=== PATIENT | female | born 1950 | race Hispanic/Latino ===

== ENCOUNTER 2020-04-02 07:26 | Day surgery (SDC) | payer MEDICARE ==
--- NOTE | 2020-04-01 16:26 | NUR ---
INFORMED STAN KRAUSE FOR DR JOSEPH PATIENT TOOK ELIQUIS AND METFORMIN THIS MORNING...OK TO PROCEED TO PROCEDURE, PATIENT IS LAST CASE FOR TOMORROW Addendum: 04/01/20 at 1628 by JUNIOR MERAZ RN RN INFORM PATIENT TO STOP ELIQUIS AND METFORMIN NOW
--- NOTE | 2020-04-01 16:28 | NUR ---
INFORMED PATIENT AND DAUGHTER FOREST RESENDIZ TO STOP ELIQUIS AND METFORMIN NOW, THEY VERBALIZED UNDERSTANDING
[~2020-04-02] VITALS: Ht 157.5 cm; Wt 89.8 kg
[2020-04-02] VITALS (29 sets, daily range): BP systolic 89–145; BP diastolic 40–85
[~2020-04-02 07:26] MED LIST: APIX5TAB PO; CARV25TA PO; FURO40TA5 PO; LOVA40TA2 PO; METF-446 PO; TRAM50TA4 PO
[2020-04-02] MEDS ORDERED: LIDOCAINE HCL 2% VISCOUS 15 ML UDCUP PO SCH (08:00)
[2020-04-02 08:15] LABS: BASOPHILS % (AUTO) 0.6 % (0.0-5.0); EOSINOPHILS % (AUTO) 1.8 % (0.0-8.0); HEMATOCRIT 35.1 % (36-48); LYMPHOCYTES % (AUTO) 42.5 % (21.0-51.0); MEAN CORPUSCULAR HEMOGLOBIN 30.8 pg (27.0-33.0); MEAN CORPUSCULAR HGB CONC 31.9 g/dL (32.0-36.0); MEAN CORPUSCULAR VOLUME 96.4 fL (79-99); MONOCYTES % (AUTO) 8.3 % (3.0-13.0); NEUTROPHILS % (AUTO) 46.4 % (40.0-77.0); PLATELET COUNT (AUTO) 142 K/uL (130-400); RED BLOOD CELL COUNT(AUTO) 3.64 MIL/uL (4.00-5.50); RED CELL DISTRIBUTION WIDTH 13.1 % (11.0-15.5); WHITE BLOOD COUNT (AUTO) 5.1 K/uL (4.8-10.8)
[2020-04-02 08:25] LABS: APPEARANCE,URINE Cloudy (CLEAR); BILIRUBIN,URINE Negative (NEGATIVE); COLOR,URINE Yellow (YELLOW); GLUCOSE, URINE (UA) Negative (NEGATIVE); KETONES,URINE Negative (NEGATIVE); LEUKOCYTE ESTERASE ,URINE Trace (NEGATIVE); NITRATE,URINE Negative (NEGATIVE); OCCULT BLOOD,URINE Nonhemolyzed Trace (NEGATIVE); POTASSIUM 3.8 mmol/L (3.5-5.1); PROTEIN,URINE POS 1+ mg/dL (NEGATIVE)
[2020-04-02 08:29] LABS: INR 0.99 (0.85-1.15); PARTIAL THROMBOPLASTIN TIME 26.7 SEC (26.3-35.5); PROTHROMBIN TIME 10.7 SEC (9.6-11.6)
[2020-04-02 08:48] LABS: BACTERIA,URINE Moderate /HPF (None Seen); RBC,URINE 0-1 /HPF (0-1); WBC,URINE 0-1 /HPF (0-1)
[2020-04-02] MEDS ORDERED: MIDAZOLAM HCL 1 MG/ML 2ML VIAL ONE ×3 (09:37→12:40)
[2020-04-02] MEDS ORDERED: FENTANYL CITRATE PF 50 MCG/1 ML 2ML VIAL ONE (09:39)
[2020-04-02] MEDS ORDERED: HEPARIN SODIUM 1000UNIT/ML 10ML VIAL ONE (11:36)
[2020-04-02] MEDS ORDERED: SODIUM BICARB 50MEQ 50ML VIAL ONE (11:36)
[2020-04-02] MEDS ORDERED: NITROGLYCERIN 2 MG/VIAL VIAL IV ONE (11:36)
[2020-04-02] MEDS ORDERED: IOHEXOL-350 50ML VIAL IV ONE (11:36)
[2020-04-02] MEDS ORDERED: IOHEXOL 350 MG/ML 100ML INFUS..BTL IV ONE (11:36)
[2020-04-02] MEDS ORDERED: MEPERIDINE-PF 25 MG/ML SYG ONE (11:36)
[2020-04-02] MEDS ORDERED: LIDOCAINE HCL 2% 20ML ONE (11:38)
[2020-04-02] MEDS ORDERED: NALOXONE HCL 0.4 MG/1 ML ML ONE (12:33)
[2020-04-02] MEDS ORDERED: SODIUM CHLORIDE 0.9% 1000ML 1,000 ML IV SCH (12:54)
[2020-04-02] MEDS ORDERED: GLUCAGON 1MG KIT 1 MG ML IM PRN (13:00)
[2020-04-02] MEDS ORDERED: DEXTROSE 50%-WATER 50 ML DISP.SYRIN IV PRN (13:00)
[2020-04-02] MEDS ORDERED: LABETALOL HCL 5 MG/ML 20ML VIAL IV ONE (13:17)
--- NOTE | 2020-04-02 13:40 | NUR ---
LATE ENTRY PT ARRIVED AT 1330, ACCEPTED PT FROM PEDIATRICS PHYSICIAN NURSE, AND AT 1340 JESSICA MCCURDY RESUMED CARE FOR PATIENT.
[2020-04-02] MEDS ORDERED: MIDAZOLAM HCL 1 MG/ML 2ML VIAL IVP PRN (14:15)
--- NOTE | 2020-04-02 16:00 | NUR ---
RECEIVED REPORT FROM JESSICA MCCURDY RN AT BEDSIDE USING SBAR. PATIENT AAOX3, RESPIRATIONS UNLABORED, VITAL SIGNS STABLE, DENIES ANY PAIN AT THIS TIME. DRESSING TO RIGHT GROIN IS DRY/INTACT, NO HEMATOMA, SOFT TO TOUCH.
[2020-04-02] MEDS ORDERED: INSULIN HUMULIN R 100 UNIT/ML 3ML SQ SCH (16:30)
--- NOTE | 2020-04-02 17:10 | NUR ---
PATIENT DISCHARGED FROM FACILITY VIA WHEELCHAIR BY NURSE. PATIENT ASSISTED INTO PRIVATE VEHICLE DRIVEN BY DAUGHTER.
== END 2020-04-02 17:10 | disposition home or self-care (01) ==
LOC: DAH 07:26
PROVIDERS: ATTEND Internal Medicine Cardiovascular Disease
DX: I34.0 Nonrheumatic mitral (valve) insufficiency (principal); I10 Essential (primary) hypertension; E11.9 Type 2 diabetes mellitus without complications; I48.20 Chronic atrial fibrillation, unspecified
CPT/HCPCS: 36415; 71045; 80048; 81001; 82948; 85025; 85610; 85730; 87088; 93005; 93313; 93460; A4215; A4216; A4221; A4222; A4223 ×3; A4606; A4663; C1760; C1894 ×2; J2175; J2250 ×3; J2310; J3010; J3490 ×4; Q9965; Q9967 ×2; 99156; 99157; J1644

== ENCOUNTER 2020-04-10 12:00 | Inpatient (IN) | payer MEDICARE ==
[~2020-04-10] VITALS: Ht 157.5 cm; Wt 92.0 kg
[2020-04-10 12:44] LABS: BASOPHILS % (AUTO) 0.4 % (0.0-5.0); EOSINOPHILS % (AUTO) 1.4 % (0.0-8.0); HEMATOCRIT 36.3 % (36-48); LYMPHOCYTES % (AUTO) 26.7 % (21.0-51.0); MEAN CORPUSCULAR HEMOGLOBIN 30.7 pg (27.0-33.0); MONOCYTES % (AUTO) 8.2 % (3.0-13.0); NEUTROPHILS % (AUTO) 62.9 % (40.0-77.0); PLATELET COUNT (AUTO) 172 K/uL (130-400); RED BLOOD CELL COUNT(AUTO) 3.78 MIL/uL (4.00-5.50); RED CELL DISTRIBUTION WIDTH 13.1 % (11.0-15.5); WHITE BLOOD COUNT (AUTO) 5.7 K/uL (4.8-10.8)
[2020-04-10 12:58] LABS: HEMOGLOBIN A1C 6.7 % (4.0-6.0)
[2020-04-10 13:27] LABS: INR 0.96 (0.85-1.15); PROTHROMBIN TIME 10.4 SEC (9.6-11.6)
[2020-04-10 13:32] LABS: ALBUMIN 3.6 g/dL (3.5-5.0); BILIRUBIN,TOTAL 0.6 mg/dL (0.2-1.0); CREATININE 0.9 mg/dL (0.5-1.5); POTASSIUM 4.3 mmol/L (3.5-5.1); TOTAL PROTEIN, SERUM 7.2 g/dL (6.0-8.3)
[2020-04-14 12:02] VITALS: BP 119/55
[2020-04-15] MEDS ORDERED: CEFUROXIME SODIUM 1.5 GM VIAL IVP SCH (08:00)
[2020-04-20] VITALS (21 sets, daily range): BP systolic 113–180; BP diastolic 45–86
[2020-04-20] MEDS: CEFUROXIME SODIUM 1.5 GM VIAL IVP SCH ×2 (06:00→09:20)
[2020-04-20] MEDS ORDERED: EPINEPHRINE 10 MG in SODIUM CHLORIDE 0.9% 240 ML IV PRN (06:15)
[2020-04-20] MEDS ORDERED: AMINOCAPROIC ACID 15,000 MG in SODIUM CHLORIDE 0.9% 500ML 420 ML IV PRN (06:15)
[2020-04-20] MEDS ORDERED: NOREPINEPHRINE BITARTRATE 8 MG in DEXTROSE 5%-WATER 250 ML IV PRN (06:15)
[2020-04-20] MEDS ORDERED: SODIUM CHLORIDE 0.9% 1000ML 1,000 ML IV ONE ×2 (07:44→11:11)
[2020-04-20] MEDS ORDERED: DELNIDO FORMULA 1 BAG IV ONE (07:46)
[2020-04-20] MEDS ORDERED: NOREPINEPHRINE BITARTRATE 1 MG/1 ML ML IV ONE (09:03)
[2020-04-20] MEDS ORDERED: EPINEPHRINE 1 MG/ML AMPULE ONE (09:03)
[2020-04-20] MEDS ORDERED: PROTAMINE SULFATE 10 MG/ML 25ML VIAL IV ONE (09:03)
[2020-04-20] MEDS ORDERED: AMINOCAPROIC ACID 250 MG/ML 20 ML VIAL IV ONE ×2 (09:03→15:25)
[2020-04-20] MEDS ORDERED: SODIUM BICARB 50MEQ 50ML VIAL ONE (09:03)
[2020-04-20] MEDS ORDERED: HEPARIN SODIUM 1000UNIT/ML 10ML VIAL ONE (09:03)
[2020-04-20] MEDS ORDERED: FENTANYL CITRATE PF 50 MCG/1 ML 20ML VIAL IJ ONE (09:03)
[2020-04-20] MEDS ORDERED: ESMOLOL HCL 10 MG/ML 10 ML VIAL ONE ×2 (09:03→09:04)
[2020-04-20] MEDS ORDERED: MIDAZOLAM HCL 1 MG/ML 2ML VIAL ONE (09:03)
[2020-04-20] MEDS ORDERED: LIDOCAINE PF 2% 5ML ABBOJECT ONE ×2 (09:03→09:04)
[2020-04-20] MEDS ORDERED: PROPOFOL 10 MG/ML 20ML VIAL IV ONE (09:03)
[2020-04-20] MEDS ORDERED: ROCURONIUM 10MG/1ML SYR 10 MG/ML ML ONE ×2 (09:04→11:16)
--- NOTE | 2020-04-20 09:31 | NUR ---
BELONGINGS WITH DAUGHTER
[2020-04-20] MEDS ORDERED: OCTYL 2-CYANOACRYLATE 1 EACH TP ONE (10:12)
[2020-04-20] MEDS ORDERED: CEFAZOLIN SODIUM 1 GM VIAL ONE (10:12)
[2020-04-20 10:15] LABS: ABG BASE EXCESS 1.5 mmol/L (-2.0-3.0); ABG HCO3 23.4 mmol/L (21.0-28.0); ABG OXYGEN SATURATION 98.8 % (95.0-99.0); ABG PCO2 29 mmHg (32-45)
[2020-04-20] MEDS ORDERED: ETOMIDATE 2 MG/ML 10 ML VIAL ONE (10:35)
[2020-04-20 10:42] LABS: ABG BASE EXCESS -1.6 mmol/L (-2.0-3.0); ABG OXYGEN SATURATION 98.6 % (95.0-99.0); ABG PCO2 32 mmHg (32-45)
[2020-04-20 11:08] LABS: ABG BASE EXCESS 5.7 mmol/L (-2.0-3.0); ABG HCO3 28.6 mmol/L (21.0-28.0); ABG OXYGEN SATURATION 98.6 % (95.0-99.0); ABG PCO2 35 mmHg (32-45)
[2020-04-20] MEDS ORDERED: ROPIVACAINE 0.5% 5MG/ML 30ML IJ ONE (11:22)
[2020-04-20] MEDS ORDERED: GLYCOPYRROLATE 1 MG/5 ML SYRINGE ONE (11:23)
[2020-04-20] MEDS ORDERED: Q-PUMP 1 EACH IRRIG SCH (11:30)
[2020-04-20] MEDS ORDERED: SODIUM CHLORIDE 0.9% 500ML 500 ML IV SCH (11:36)
[2020-04-20] MEDS ORDERED: NOREPINEPHRINE 4MG/NS 250ML 250 ML IV PRN (11:45)
[2020-04-20] MEDS ORDERED: ALBUMIN (HUMAN) 5% 250 ML IV PRN (11:45)
[2020-04-20] MEDS ORDERED: ACETAMINOPHEN 325 MG TAB PO PRN (11:45)
[2020-04-20] MEDS ORDERED: EPINEPHRINE 10 MG in DEXTROSE 5%-WATER 250 ML IV PRN (11:45)
[2020-04-20] MEDS ORDERED: MORPHINE SULFATE 2 MG/ML 1ML SYG IV PRN (11:45)
[2020-04-20] MEDS ORDERED: ONDANSETRON HCL 4 MG/2 ML VIAL IV PRN (11:45)
[2020-04-20] MEDS ORDERED: MORPHINE SULFATE 4 MG/1ML SYG IV PRN (11:45)
[2020-04-20] MEDS ORDERED: GLUCAGON 1MG KIT 1 MG ML IM PRN (11:45)
[2020-04-20] MEDS ORDERED: INSULIN REGULAR, HUMAN 3ML 100 UNIT in SODIUM CHLORIDE 0.9% 99 ML IV SCH ×2 (11:45)
[2020-04-20] MEDS ORDERED: SODIUM CHLORIDE 0.9% 1000ML 1,000 ML IV SCH (11:45)
[2020-04-20] MEDS ORDERED: SODIUM CHLORIDE 0.9% 250 ML IV PRN (11:45)
[2020-04-20] MEDS ORDERED: SODIUM CHLORIDE 0.9% 10 ML VIAL IVP PRN (11:45)
[2020-04-20] MEDS ORDERED: SODIUM BICARB 50MEQ 50ML VIAL IV PRN (11:45)
[2020-04-20] MEDS ORDERED: DEXTROSE 50%-WATER 50 ML DISP.SYRIN IV PRN (11:45)
[2020-04-20] MEDS ORDERED: ACETAMINOPHEN 650 MG SUPPOSITORY RC PRN (11:45)
[2020-04-20] MEDS ORDERED: POTASSIUM PHOS 15 mMOL+NS250ML 250 ML IV PRN (11:45)
[2020-04-20] MEDS ORDERED: CALCIUM GLUCONATE 1 GM in SODIUM CHLORIDE 0.9% 50 ML IV PRN (11:45)
[2020-04-20] MEDS ORDERED: AMINOCAPROIC ACID 15,000 MG in SODIUM CHLORIDE 0.9% 250 ML IV SCH (11:45)
[2020-04-20] MEDS ORDERED: PROPOFOL 1000 MG/100 ML 100 ML IV PRN (11:45)
[2020-04-20] MEDS ORDERED: MAGNESIUM 2GM PREMIX 50ML 50 ML IV PRN (11:45)
[2020-04-20] MEDS ORDERED: NITROGLYCERIN 50 MG/D5% WATER 250 BOT IV SCH (11:45)
[2020-04-20 11:55] LABS: ABG BASE EXCESS 1.9 mmol/L (-2.0-3.0); ABG HCO3 26.1 mmol/L (21.0-28.0); ABG OXYGEN SATURATION 98.5 % (95.0-99.0); ABG PCO2 39 mmHg (32-45)
--- NOTE | 2020-04-20 12:25 | NUR ---
RECEIVED PT FROM OR POST MVR, PT ACCOMPANIED BY DR. GOODWIN AND OR NURSES. ASSESSMENT COMPLETED NOTED. PT ORALLY INTUBATED AND PLACED AT PRESCRIBED VENT SETTINGS. ALL LINES LEVELED AND CALIBRATED WITH ADEQUATE WAVEFORM. PT ON LEVOPHED AT 2 MCGS/MIN AND EPI AT 0.07 MCGS/KG/MIN AND AMICAR AT 75 ML/HR VIA RT IJ CORDIS. TITRATING NEEDED. V PACING WIRES X 2 TO PACEMAKER GENERATOR BOX SET AT VVI 60, SEN 1, STIM 18. PACING CORRECTLY. PT SR 64 WITH OCCASIONAL PACING, UNDERLYING SINUS BRADYCARDIA . AUDIBLE STRONG APICAL PULSE. VS/HEMODYNAMICS NOTED IN EMR. PT CO 4.5-5 AND CI 2.4. NO S/S OF PAIN AT THIS MOMENT, PT UNABLE TO OPEN EYES OR FOLLOW COMMANDS AT THIS TIME. CONTINUE TO MONITOR PT.
[2020-04-20 12:48] LABS: ABG BASE EXCESS -0.2 mmol/L (-2.0-3.0); ABG HCO3 23.8 mmol/L (21.0-28.0); ABG OXYGEN SATURATION 98.3 % (95.0-99.0); ABG PCO2 36 mmHg (32-45)
[2020-04-20 12:58] LABS: HEMATOCRIT 27.2 % (36-48); MEAN CORPUSCULAR HEMOGLOBIN 31.6 pg (27.0-33.0); MEAN CORPUSCULAR HGB CONC 33.5 g/dL (32.0-36.0); MEAN CORPUSCULAR VOLUME 94.4 fL (79-99); RED BLOOD CELL COUNT(AUTO) 2.88 MIL/uL (4.00-5.50); RED CELL DISTRIBUTION WIDTH 12.8 % (11.0-15.5)
[2020-04-20 13:13] LABS: INR 1.15 (0.85-1.15); PARTIAL THROMBOPLASTIN TIME 23.9 SEC (26.3-35.5); PROTHROMBIN TIME 12.4 SEC (9.6-11.6)
[2020-04-20 13:20] LABS: CREATININE 0.7 mg/dL (0.5-1.5); MAGNESIUM 2.5 mg/dL (1.80-2.40); PHOSPHORUS 3.2 mg/dL (2.5-4.9); POTASSIUM 4.6 mmol/L (3.5-5.1)
--- NOTE | 2020-04-20 13:45 | NUR ---
[facility] CALLED AND NOTIFED OF PT ARRIVAL TO UNIT.
[2020-04-20 13:46] LABS: ABG HCO3 23.1 mmol/L (21.0-28.0); ABG OXYGEN SATURATION 98.4 % (95.0-99.0); ABG PCO2 33 mmHg (32-45)
--- NOTE | 2020-04-20 14:22 | NUR ---
DAUGHTER FOREST RESENDIZ AT BEDSIDE. UPDATED IN PT CONDITION. ALL QUESTIONS ANSWERED.
[2020-04-20] MEDS ORDERED: HEPARIN SODIUM 1000UNIT/ML 10ML VIAL IV ONE (15:25)
[2020-04-20] MEDS ORDERED: CALCIUM GLUCONATE 1 GM/10 ML VIAL IV ONE (15:25)
[2020-04-20] MEDS ORDERED: MAGNESIUM SULFATE 1 GM/2 ML VIAL IM ONE (15:25)
[2020-04-20] MEDS ORDERED: PHENYLEPHRINE HCL 10 MG/ML 1ML VIAL IV ONE (15:25)
[2020-04-20] MEDS ORDERED: SODIUM BICARB 8.4% 50ML SYRINGE IVP ONE (15:25)
[2020-04-20] MEDS ORDERED: ALBUMIN (HUMAN) 25% 50 ML IV ONE (15:25)
[2020-04-20] MEDS ORDERED: MANNITOL 25% 50ML VIAL IV ONE (15:25)
[2020-04-20 15:40] LABS: ABG BASE EXCESS 0.1 mmol/L (-2.0-3.0); ABG HCO3 23.4 mmol/L (21.0-28.0); ABG OXYGEN SATURATION 98.5 % (95.0-99.0); ABG PCO2 33 mmHg (32-45)
[2020-04-20] MEDS: POTASSIUM CHLORIDE 20MEQ/100ML 100 ML IV PRN ×2 (15:43→18:35)
[2020-04-20] MEDS: CEFAZOLIN SODIUM 1 GM VIAL IV SCH (16:03)
--- NOTE | 2020-04-20 16:26 | NUR ---
YON PLAN PATIENT S/P AVR IN CVR VENTED. JUAN MANUEL WILL CONTINUE TO FOLLOW. Addendum: 04/20/20 at 1627 by LOIS OTTO RN CM Amended: Links added.
[2020-04-20 17:30] LABS: ABG BASE EXCESS 0.1 mmol/L (-2.0-3.0); ABG HCO3 26.7 mmol/L (21.0-28.0); ABG OXYGEN SATURATION 96.5 % (95.0-99.0); ABG PCO2 52 mmHg (32-45)
--- NOTE | 2020-04-20 17:33 | NUR ---
WEANING FROM VENT UNSUCCESSFUL. PT UNABLE TO STAY AWAKE AND TAKE DEEP BREATHS. PLACED BACK ON SIMV 12, WILL REATTEMPT WHEN PT FULLY AWAKE.
[2020-04-20 18:31] LABS: ABG BASE EXCESS 3.1 mmol/L (-2.0-3.0); ABG HCO3 26.4 mmol/L (21.0-28.0); ABG OXYGEN SATURATION 98.3 % (95.0-99.0); ABG PCO2 36 mmHg (32-45)
[2020-04-20 20:14] LABS: ABG BASE EXCESS -0.6 mmol/L (-2.0-3.0); ABG OXYGEN SATURATION 98.1 % (95.0-99.0); ABG PCO2 45 mmHg (32-45)
[2020-04-20] MEDS ORDERED: KETOROLAC TROMETHAMINE 15MG/ML IM PRN (20:15)
[2020-04-20] MEDS ORDERED: KETOROLAC TROMETHAMINE 15MG/ML ONE (20:16)
[2020-04-20] MEDS: FAMOTIDINE/PF 20 MG/2 ML VIAL IV SCH (20:21)
[2020-04-20] MEDS: SIMVASTATIN 20 MG TABLET PO SCH (20:22)
[2020-04-20 22:28] LABS: ABG BASE EXCESS -2.5 mmol/L (-2.0-3.0); ABG HCO3 24.3 mmol/L (21.0-28.0); ABG PCO2 51 mmHg (32-45)
[2020-04-20 23:32] LABS: ABG BASE EXCESS 1.3 mmol/L (-2.0-3.0); ABG HCO3 27.3 mmol/L (21.0-28.0); ABG OXYGEN SATURATION 97.6 % (95.0-99.0); ABG PCO2 50 mmHg (32-45)
[2020-04-21] VITALS (38 sets, daily range): BP systolic 94–189; BP diastolic 44–75
[2020-04-21 00:50] LABS: ABG BASE EXCESS 1.9 mmol/L (-2.0-3.0); ABG OXYGEN SATURATION 97.7 % (95.0-99.0); ABG PCO2 51 mmHg (32-45)
[2020-04-21] MEDS: CEFAZOLIN SODIUM 1 GM VIAL IV SCH ×2 (01:13→08:32)
[2020-04-21 05:09] LABS: HEMATOCRIT 29.4 % (36-48); MEAN CORPUSCULAR HEMOGLOBIN 30.7 pg (27.0-33.0); MEAN CORPUSCULAR HGB CONC 32.3 g/dL (32.0-36.0); MEAN CORPUSCULAR VOLUME 95.1 fL (79-99); RED BLOOD CELL COUNT(AUTO) 3.09 MIL/uL (4.00-5.50); RED CELL DISTRIBUTION WIDTH 13.5 % (11.0-15.5); WHITE BLOOD COUNT (AUTO) 10.5 K/uL (4.8-10.8)
[2020-04-21 05:28] LABS: ABG BASE EXCESS 4.2 mmol/L (-2.0-3.0); ABG HCO3 30.9 mmol/L (21.0-28.0); ABG OXYGEN SATURATION 98.1 % (95.0-99.0); ABG PCO2 54 mmHg (32-45)
[2020-04-21 05:34] LABS: INR 1.03 (0.85-1.15); PROTHROMBIN TIME 11.1 SEC (9.6-11.6)
[2020-04-21 05:40] LABS: CREATININE 1.1 mg/dL (0.5-1.5); MAGNESIUM 1.9 mg/dL (1.80-2.40); PHOSPHORUS 4.2 mg/dL (2.5-4.9); POTASSIUM 3.9 mmol/L (3.5-5.1)
[2020-04-21] MEDS: CEFUROXIME SODIUM 1.5 GM VIAL IVP SCH (06:00)
[2020-04-21] MEDS: KETOROLAC TROMETHAMINE 15MG/ML IV PRN ×2 (06:48→22:14)
[2020-04-21] MEDS: FUROSEMIDE 10 MG/ML 2ML VIAL IV SCH ×2 (08:31→20:23)
[2020-04-21] MEDS: ASPIRIN 81MG TAB.CHEW PO SCH (08:31)
[2020-04-21] MEDS: FAMOTIDINE/PF 20 MG/2 ML VIAL IV SCH ×2 (08:31→20:22)
[2020-04-21] MEDS: TRAMADOL HCL 50 MG TABLET PO PRN ×2 (08:32→15:31)
[2020-04-21] MEDS: POTASSIUM CHLORIDE 20MEQ/100ML 100 ML IV PRN (10:25)
--- NOTE | 2020-04-21 15:04 | NUR ---
DC PLAN VISITED WITH PATIENT. PATIENT IN THE MIDDLE OF PT SESSION DID NOT WANT TO INTERRUPT. Addendum: 04/21/20 at 1505 by LOIS OTTO RN CM Amended: Links added.
[2020-04-21] MEDS: CARVEDILOL 3.125 MG TABLET PO SCH ×2 (15:31→20:22)
[2020-04-21] MEDS: SIMVASTATIN 20 MG TABLET PO SCH (20:22)
[2020-04-21] MEDS: ACETAMINOPHEN 325 MG TAB PO PRN (22:14)
[2020-04-22] VITALS (15 sets, daily range): BP systolic 102–141; BP diastolic 42–80
[2020-04-22 00:50] LABS: MAGNESIUM 2.1 mg/dL (1.80-2.40); POTASSIUM 3.8 mmol/L (3.5-5.1)
[2020-04-22] MEDS: POTASSIUM CHLORIDE 20MEQ/100ML 100 ML IV PRN (01:03)
[2020-04-22] MEDS ORDERED: CALCIUM GLUCONATE 1 GM/10 ML VIAL IV ONE (03:19)
[2020-04-22] MEDS: TRAMADOL HCL 50 MG TABLET PO PRN ×6 (05:05→18:25)
[2020-04-22 06:51] LABS: HEMATOCRIT 28.2 % (36-48); MEAN CORPUSCULAR HEMOGLOBIN 31.3 pg (27.0-33.0); MEAN CORPUSCULAR HGB CONC 31.9 g/dL (32.0-36.0); MEAN CORPUSCULAR VOLUME 97.9 fL (79-99); RED BLOOD CELL COUNT(AUTO) 2.88 MIL/uL (4.00-5.50); RED CELL DISTRIBUTION WIDTH 13.7 % (11.0-15.5); WHITE BLOOD COUNT (AUTO) 11.2 K/uL (4.8-10.8)
[2020-04-22 07:03] LABS: CREATININE 0.9 mg/dL (0.5-1.5); POTASSIUM 4.2 mmol/L (3.5-5.1)
[2020-04-22] MEDS: FUROSEMIDE 10 MG/ML 2ML VIAL IV SCH (09:00)
[2020-04-22] MEDS ORDERED: CARVEDILOL 3.125 MG TABLET PO SCH (09:00)
[2020-04-22] MEDS: ASPIRIN 81MG TAB.CHEW PO SCH (09:07)
[2020-04-22] MEDS: FAMOTIDINE/PF 20 MG/2 ML VIAL IV SCH (09:07)
[2020-04-22] MEDS: CARVEDILOL 3.125 MG TABLET PO SCH (09:08)
[2020-04-22] MEDS: FUROSEMIDE 20 MG TABLET PO SCH ×2 (09:08→18:22)
[2020-04-22] MEDS ORDERED: METOPROLOL TARTRATE 25 MG TAB PO SCH (09:45)
[2020-04-22] MEDS: SIMVASTATIN 20 MG TABLET PO SCH (20:20)
[2020-04-22] MEDS: METOPROLOL TARTRATE 25 MG TAB PO SCH (20:20)
[2020-04-22] MEDS: FAMOTIDINE 20MG TAB 20 MG TAB PO SCH (20:20)
[2020-04-23] MEDS: TRAMADOL HCL 50 MG TABLET PO PRN ×3 (01:24→17:40)
[2020-04-23 04:38] VITALS: BP 115/48
[2020-04-23 05:27] LABS: HEMATOCRIT 28.6 % (36-48); MEAN CORPUSCULAR HEMOGLOBIN 30.9 pg (27.0-33.0); MEAN CORPUSCULAR HGB CONC 30.8 g/dL (32.0-36.0); MEAN CORPUSCULAR VOLUME 100.4 fL (79-99); PLATELET COUNT (AUTO) 102 K/uL (130-400); RED BLOOD CELL COUNT(AUTO) 2.85 MIL/uL (4.00-5.50); RED CELL DISTRIBUTION WIDTH 13.3 % (11.0-15.5); WHITE BLOOD COUNT (AUTO) 9.5 K/uL (4.8-10.8)
[2020-04-23 06:18] LABS: CREATININE 0.7 mg/dL (0.5-1.5); POTASSIUM 4.5 mmol/L (3.5-5.1)
[2020-04-23] MEDS: METFORMIN HCL 500 MG TABLET PO SCH ×3 (07:30→17:31)
[2020-04-23 08:43] VITALS: BP 135/78
[2020-04-23] MEDS: FUROSEMIDE 20 MG TABLET PO SCH ×2 (09:44→17:31)
[2020-04-23] MEDS: METOPROLOL TARTRATE 25 MG TAB PO SCH ×2 (09:44→20:47)
[2020-04-23] MEDS: ASPIRIN 81MG TAB.CHEW PO SCH (09:44)
[2020-04-23] MEDS: FAMOTIDINE 20MG TAB 20 MG TAB PO SCH ×2 (09:44→20:47)
--- NOTE | 2020-04-23 10:15 | NUR ---
DC PLAN VISITED WITH PATIENT. PATIENT LIVES WITH DAUGHTER. INDEPENDENT ABLE TO PERFORM ADL'S. PATIENT HAS NO SERVICES. WALKER AVAILABLE DOES NOT USE. FEELS SAFE TO RETURN HOME. Addendum: 04/23/20 at 1019 by LOIS OTTO RN CM Amended: Links added.
[2020-04-23 10:59] VITALS: BP 128/62
[2020-04-23 16:30] VITALS: BP 128/80
[2020-04-23] MEDS: ENOXAPARIN SODIUM 30 MG/0.3 ML SQ SCH (17:40)
[2020-04-23 19:00] VITALS: BP 129/82
[2020-04-23] MEDS: SIMVASTATIN 20 MG TABLET PO SCH (20:47)
[2020-04-23 23:00] VITALS: BP 136/63
[2020-04-24] MEDS: TRAMADOL HCL 50 MG TABLET PO PRN ×2 (01:53→08:09)
[2020-04-24 03:00] VITALS: BP 124/65
[2020-04-24 04:46] LABS: HEMATOCRIT 26.6 % (36-48); MEAN CORPUSCULAR HEMOGLOBIN 30.7 pg (27.0-33.0); RED BLOOD CELL COUNT(AUTO) 2.77 MIL/uL (4.00-5.50); RED CELL DISTRIBUTION WIDTH 12.9 % (11.0-15.5); WHITE BLOOD COUNT (AUTO) 7.1 K/uL (4.8-10.8)
[2020-04-24 05:22] LABS: CREATININE 0.8 mg/dL (0.5-1.5); POTASSIUM 3.7 mmol/L (3.5-5.1)
[2020-04-24] MEDS: FAMOTIDINE 20MG TAB 20 MG TAB PO SCH ×2 (08:00→20:33)
[2020-04-24] MEDS: ASPIRIN 81MG TAB.CHEW PO SCH (08:01)
[2020-04-24] MEDS: FUROSEMIDE 20 MG TABLET PO SCH ×2 (08:01→16:56)
[2020-04-24] MEDS: METFORMIN HCL 500 MG TABLET PO SCH ×2 (08:01→16:56)
[2020-04-24] MEDS: METOPROLOL TARTRATE 25 MG TAB PO SCH ×2 (08:01→20:33)
[2020-04-24] MEDS: ENOXAPARIN SODIUM 30 MG/0.3 ML SQ SCH (08:02)
[2020-04-24 08:36] VITALS: BP 113/64
[2020-04-24 11:20] VITALS: BP 121/64
[2020-04-24 11:57] VITALS: BP 121/64
[2020-04-24] MEDS ORDERED: TRAMADOL HCL 50 MG TABLET PO PRN ×2 (14:00)
--- NOTE | 2020-04-24 14:19 | NUR ---
CALLED AND SPOKE WITH DAUGHTER, FOREST ([phone]) AND INFORMED HER THAT DR. SILVA HAD ROUNDED AND THAT PATIENT WILL BE FOR DC TOMORROW.
[2020-04-24] MEDS: GABAPENTIN 100 MG CAPSULE PO SCH ×2 (14:35→20:33)
[2020-04-24 16:00] VITALS: BP 129/77
[2020-04-24 20:00] VITALS: BP 137/66
[2020-04-24] MEDS: SIMVASTATIN 20 MG TABLET PO SCH (20:33)
[2020-04-25] VITALS: BP 117/73
[2020-04-25 04:00] VITALS: BP 137/55
[2020-04-25 07:00] VITALS: BP 120/58
[2020-04-25] MEDS: FUROSEMIDE 20 MG TABLET PO SCH (08:13)
[2020-04-25] MEDS: METOPROLOL TARTRATE 25 MG TAB PO SCH (08:13)
[2020-04-25] MEDS: METFORMIN HCL 500 MG TABLET PO SCH (08:13)
[2020-04-25] MEDS: FAMOTIDINE 20MG TAB 20 MG TAB PO SCH (08:14)
[2020-04-25] MEDS: ASPIRIN 81MG TAB.CHEW PO SCH (08:14)
[2020-04-25] MEDS: GABAPENTIN 100 MG CAPSULE PO SCH (08:17)
[2020-04-25] MEDS: ACETAMINOPHEN 325 MG TAB PO PRN (08:17)
[2020-04-25] MEDS: ENOXAPARIN SODIUM 30 MG/0.3 ML SQ SCH (08:18)
[2020-04-25] MEDS ORDERED: CARV12.580 PO (10:15)
[2020-04-25] MEDS ORDERED: GABA100C PO (10:15)
[2020-04-25 11:00] VITALS: BP 128/60
[2020-04-25] MEDS ORDERED: CARVEDILOL 12.5 MG TABLET PO SCH (21:00)
[2020-04-25] MEDS ORDERED: GABAPENTIN 100 MG CAPSULE PO SCH (21:00)
== END 2020-04-25 13:20 | disposition home or self-care (01) | DRG 220 ==
LOC: EDSTATUS 12:00 → DAHIP 04-20 06:53 → 2CV 04-20 10:57 → 4AH 04-22 14:45
PROVIDERS: ADMIT Thoracic Surgery (Cardiothoracic Vascular Surgery); ATTEND Thoracic Surgery (Cardiothoracic Vascular Surgery)
PROC: 5A1221Z Performance of Cardiac Output, Continuous (ICD-10-PCS; 2020-04-20)
PROC: B24BZZ4 Ultrasonography of Heart with Aorta, Transesophageal (ICD-10-PCS; 2020-04-20)
PROC: 3E083GC Introduction of Other Therapeutic Substance into Heart, Percutaneous Approach (ICD-10-PCS; 2020-04-20)
PROC: 02QG0ZZ Repair Mitral Valve, Open Approach (ICD-10-PCS; principal; 2020-04-20 09:08)
PROC: 02L70ZK Occlusion of Left Atrial Appendage, Open Approach (ICD-10-PCS; 2020-04-20 09:08)
DX: I34.0 Nonrheumatic mitral (valve) insufficiency (principal); I48.20 Chronic atrial fibrillation, unspecified; E11.9 Type 2 diabetes mellitus without complications; E66.9 Obesity, unspecified; E78.00 Pure hypercholesterolemia, unspecified; E78.5 Hyperlipidemia, unspecified; E87.70 Fluid overload, unspecified; G89.12 Acute post-thoracotomy pain; I10 Essential (primary) hypertension; I27.21 Secondary pulmonary arterial hypertension; Z68.37 Body mass index [BMI] 37.0-37.9, adult; Z79.82 Long term (current) use of aspirin; Z79.899 Other long term (current) drug therapy
CPT/HCPCS: 36415; 71045; 71046; 80048; 80053; 82330; 82435; 82803; 82947; 82948; 83036; 83605; 83735; 84100; 84132; 84295; 85018; 85025; 85027; 85347; 85610; 85730; 86850; 86900; 86901; 86922; 93005; 93313; 93318; 93880; 94002; 94010; 94150; 97039; A4357; A7048; G0378; J0171; J0610; J0690; J0697; J1644; J1650; J1815; J1885; J1940; J2001; J2150; J2250; J2370; J2405; J2704; J2720; J2795; J3010; J3475; J3480; J3490; J7030; J7040; P9047

== ENCOUNTER 2020-05-20 18:17 | Emergency (ER) | payer MEDICARE ==
[~2020-05-20 18:17] MED LIST changes: +CARV12.580 PO; -CARV25TA PO; +GABA100C PO
[2020-05-20 19:23] LABS: BASOPHILS % (AUTO) 0.2 % (0.0-5.0); EOSINOPHILS % (AUTO) 0.2 % (0.0-8.0); HEMATOCRIT 36.2 % (36-48); LYMPHOCYTES % (AUTO) 27.9 % (21.0-51.0); MEAN CORPUSCULAR HEMOGLOBIN 30.4 pg (27.0-33.0); MEAN CORPUSCULAR HGB CONC 32.3 g/dL (32.0-36.0); MONOCYTES % (AUTO) 6.4 % (3.0-13.0); NEUTROPHILS % (AUTO) 64.9 % (40.0-77.0); PLATELET COUNT (AUTO) 151 K/uL (130-400); RED BLOOD CELL COUNT(AUTO) 3.85 MIL/uL (4.00-5.50); RED CELL DISTRIBUTION WIDTH 13.2 % (11.0-15.5); WHITE BLOOD COUNT (AUTO) 4.6 K/uL (4.8-10.8)
[2020-05-20 19:38] LABS: INR 0.99 (0.85-1.15); PARTIAL THROMBOPLASTIN TIME 26.2 SEC (26.3-35.5); PROTHROMBIN TIME 10.7 SEC (9.6-11.6)
[2020-05-20 19:42] LABS: CREATININE 0.8 mg/dL (0.5-1.5); POTASSIUM 3.9 mmol/L (3.5-5.1)
[2020-05-20 19:42] LABS: APPEARANCE,URINE Clear (CLEAR); BILIRUBIN,URINE Negative (NEGATIVE); COLOR,URINE Yellow (YELLOW); GLUCOSE, URINE (UA) Negative (NEGATIVE); KETONES,URINE Negative (NEGATIVE); LEUKOCYTE ESTERASE ,URINE Negative (NEGATIVE); NITRATE,URINE Negative (NEGATIVE); OCCULT BLOOD,URINE Negative (NEGATIVE); PH,URINE 7.5 (5.0-8.0); PROTEIN,URINE Negative (NEGATIVE); UROBILINOGEN,URINE 0.2 mg/dL (0.2-1.0)
[2020-05-20 19:46] LABS: ALBUMIN 3.6 g/dL (3.5-5.0); BILIRUBIN,TOTAL 0.4 mg/dL (0.2-1.0); TOTAL PROTEIN, SERUM 7.4 g/dL (6.0-8.3)
[2020-05-20] MEDS ORDERED: DICYCLOMINE HCL 10 MG/ML 2ML AMP IM ONE (20:19)
[2020-05-20] MEDS ORDERED: ONDANSETRON HCL 4 MG/2 ML VIAL ONE (20:19)
[2020-05-20] MEDS ORDERED: FAMOTIDINE/PF 20 MG/2 ML VIAL IV ONE (20:19)
== END 2020-05-20 21:17 | disposition home or self-care (01) ==
LOC: EDH 18:17
DX: A08.4 Viral intestinal infection, unspecified (principal); I10 Essential (primary) hypertension; E11.9 Type 2 diabetes mellitus without complications; I25.10 Atherosclerotic heart disease of native coronary artery without angina pectoris
CPT/HCPCS: 36415; 71045; 74176; 80053; 81003; 82550; 83690; 84484; 85025; 85610; 85730; 96372; 96374; 96375; 99285; J0500; J2405; J3490

== ENCOUNTER → 2023-02-08 | Outpatient (CLI) | payer OTHER, MEDICARE | END | disposition home or self-care (01) | LOC: RESP 11:32 | PROVIDERS: ATTEND Internal Medicine Cardiovascular Disease | DX: R06.02 Shortness of breath (principal) | CPT/HCPCS: 94060; 94727; 94729 ==